=== PATIENT | male | born 1955 | race Two or more races ===

== ENCOUNTER → 2024-12-22 | Outpatient (CLI) | payer MEDICARE, SELFPAY ==
--- NOTE | 2024-12-22 14:06 | XR_ITS ---
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
--- NOTE | 2024-12-22 14:06 | XR_ITS ---
Examination: Foot bilateral, 6 views Technique: AP, oblique, lateral views each foot total 6 views Date and time of exam: December 22, 2024 1500 hours INDICATIONS: Patient fell from a tree 5 months ago with bilateral foot pain. FINDINGS: Severe osteopenia Fracture of the distal right fibular shaft with abundant bony callus but nonunion at the fracture site Pes planus Bones of the feet appear intact IMPRESSION: Bones of the feet appear intact
== END | disposition home or self-care (01) ==
LOC: CDIM 13:59
PROVIDERS: PCP Nurse Practitioner Primary Care; Referring Provider Nurse Practitioner Primary Care; Visit Provider Nurse Practitioner Primary Care
DX: S82.491A Other fracture of shaft of right fibula, initial encounter for closed fracture (principal); S99.922A Unspecified injury of left foot, initial encounter; S99.921A Unspecified injury of right foot, initial encounter; W14.XXXA Fall from tree, initial encounter
CPT/HCPCS: 73610; 73630

== ENCOUNTER → 2025-02-05 | Outpatient (CLI) | payer MEDICARE, SELFPAY ==
--- NOTE | 2025-02-05 09:39 | XR_ITS ---
EXAMINATION: Ankle, right 3 views . Technique: Ankle AP, oblique, lateral 3 views Date and time of exam: February 05, 2025 1041 hours Comparison December 22, 2024 INDICATIONS: Ankle fracture 6 months ago FINDINGS: Abundant callus about fracture distal fibular shaft, periosteal new bone Fracture line is still visible Pes planus Large ankle effusion IMPRESSION: Suspicious for osteomyelitis distal fibula and nonunion at the fracture site, recommend CT scan ankle without contrast follow-up
== END | disposition home or self-care (01) ==
PROVIDERS: PCP Nurse Practitioner Primary Care; Referring Provider Student in an Organized Health Care Education/Training Program; Visit Provider Student in an Organized Health Care Education/Training Program
DX: S82.491A Other fracture of shaft of right fibula, initial encounter for closed fracture (principal); X58.XXXA Exposure to other specified factors, initial encounter
CPT/HCPCS: 73610

== ENCOUNTER 2025-08-04 00:05 | Emergency (ER) | payer MEDICARE, SELFPAY ==
[2025-08-04 00:20] VITALS: BMI 2682.9
[2025-08-04 00:29] VITALS: BP 144/83; PULSE 78; RESP 20; TEMP 36.8; O2SAT 98
--- NOTE | 2025-08-04 00:53 | PD.EDRME ---
Rapid Medical Screening Exam RME Arrival date/time: 08/04/25 00:05 Chief Complaint: Ankle/Foot Injury Time Seen by Provider: 08/04/25 00:31 Vital signs: Vital Signs Temperature 98.2 F 08/04/25 00:29 Pulse Rate 78 08/04/25 00:29 Respiratory Rate 20 08/04/25 00:29 Blood Pressure 144/83 H 08/04/25 00:29 Pulse Oximetry (%) 98 08/04/25 00:29 Oxygen Delivery Method Room Air 08/04/25 00:29 RME Narrative: Right foot ulcer for 5-6 months now with redness/swelling to foot/RLE the past 2 days
--- NOTE | 2025-08-04 00:54 | XR_ITS ---
Examination: Foot, right, 3 views Technique: AP, oblique, lateral views foot, 3 views Date and time of exam: August 04, 2025, 0105 hrs. Indications: Nonhealing right foot ulcer note is beginning 6 months ago Findings: Deviation of the distal foot laterally relative to the forefoot Subluxation at the talonavicular joint Soft tissue defect at this joint Early cortical erosion involving the medial aspect of the navicular No fracture Impression: Early osteoarthritis involving the medial navicular, recommend MRI foot without contrast follow-up
[2025-08-04 01:26] LABS: Lactate (Lactic Acid) 1.0 mMol/L (0.4-2.0)
[2025-08-04 01:27] LABS: Basophils # (Auto) 0.0 Thou/mm3 (0.0-0.2); Basophils % (Auto) 1 % (0-2.5); Eosinophils # (Auto) 0.4 Thou/mm3 (0.0-0.5); Eosinophils % (Auto) 6 % (0-10); Hematocrit 41.7 % (41.0-53.0); Hemoglobin 13.7 g/dL (13.5-16.0); Immature Granulocytes Auto 0.02 Thou/mm3 (0.00-0.00); Lymphocytes # (Auto) 1.1 Thou/mm3 (1.0-4.8); Lymphocytes % (Auto) 16 % (10-50); Mean Corpuscular HGB Conc 32.9 g/dl (31.0-37.0); Mean Corpuscular Hemoglobin 28.5 pg (25.0-35.0); Mean Corpuscular Volume 87 fL (80-100); Monocytes # (Auto) 0.6 Thou/mm3 (0.0-0.8); Monocytes % (Auto) 9 % (0-12); Neutrophils # (Auto) 4.5 Thou/mm3 (1.8-7.7); Neutrophils % (Auto) 68 % (37-80); Nucleated Red Blood Cell # 0.00 Thou/mm3 (0.00-0.00); Nucleated Red Blood Cell % 0 /100 WBC (0); Platelet Count 212 Thou/mm3 (140-440); RDW Standard Deviation 44.3 fL (35.1-43.9); Red Blood Count 4.80 Miln/mm3 (4.50-5.90); White Blood Count 6.6 Thou/mm3 (3.8-10.6)
[2025-08-04 01:56] LABS: Alanine Aminotransferase 10 U/L (10-49); Albumin, Serum 4.6 gm/dL (3.4-4.8); Albumin/Globulin Ratio 1.8 (1.2-2.2); Alkaline Phosphatase 137 U/L (46-116); Anion Gap 7 (7-16); Aspartate Amino Transferase 14 U/L (0-34); BUN/Creatinine Ratio 13 Ratio (12-20); Bilirubin,Total 0.5 mg/dL (0.3-1.2); Blood Urea Nitrogen 17 mg/dL (9-23); C-Reactive Protein < 0.5 mg/dL (0.0-0.9); Calcium 10.1 mg/dL (8.3-10.6); Calcium (Corrected) 10.1 mg/dL (8.5-10.1); Carbon Dioxide 31.1 mMol/L (20.0-31.0); Chloride 103 mMol/L (98-107); Creatinine (Component) 1.3 mg/dL (0.6-1.3); Estimated Creatinine Clearance 44.7 mL/min (>60); Globulin 2.6 gm/dL (2.3-3.5); Glucose 169 mg/dL (74-106); Osmolality,Calculated 286 (275-295); Potassium 4.3 mMol/L (3.4-5.1); Procalcitonin 0.04 ng/ml (0.0-0.49); Sodium 141 mMol/L (136-145); Total Protein 7.2 gm/dL (5.7-8.2); eGFR 59 See Note
[2025-08-04 02:26] LABS: Sed Rate (ESR) 23 mm/hr (0-20)
[2025-08-04 04:32] VITALS: BP 172/94; PULSE 63; RESP 18; TEMP 36.7; O2SAT 98
--- NOTE | 2025-08-04 04:56 | PD.EDWOUND ---
ED Wound/Laceration-RME/HPI General Chief Complaint: Ankle/Foot Injury Stated Complaint: SWOLLEN RT LEG Time Seen by Provider: 08/04/25 00:31 Arrival date/time: 08/04/25 00:05 RME / HPI RME / HPI narrative: Right foot ulcer for 5-6 months now with redness/swelling to foot/RLE the past [address] COX MAIN ED EVALUATION: 69 y/o male with Hx of HTN and Type II DM presents to ED c/o right foot and ankle ulcer with worsening redness and notable swelling x 2 days. He noted sudden swelling and the right foot roll/shift to the left at the ankle prompting his visit to the ED. Patient reports a fall injury approximately 8 months ago when exiting the [employer] that did not properly heal. Patient was seen at [facility], radiographed, and told that he had an ankle sprain which may take a couple of months to heal due to Hx of DM. Community Liaison placed patient on a 7-day ABX regimen that has been completed. Community Liaison is advising surgical repair in [facility]. Related Data Previous Rx's ?Medication ?Instructions ?Recorded levofloxacin 500 mg tablet 500 mg PO QDAY #20 tabs 08/04/25 Allergies Allergy/AdvReac Type Severity Reaction Status Date / Time No Known Allergies Allergy Verified 08/04/25 00:26 Review of Systems Review of Systems Systems Reviewed: All systems reviewed, normal except as documented Past Medical History Past Medical History CARDIAC: Positive Cardiac Disorders and Hypertension GASTROINTESTINAL: Positive Gastrointestinal Disorders and Hiatal Hernia ENDOCRINE: Positive Endocrine Disorders and Diabetes Mellitus Type 2 ED Exam Narrative Physical exam: Generally the patient is alert and in no obvious distress, heart regular rate and rhythm, lungs clear to auscultation equal bilaterally, abdomen soft bowel sounds present also nontender extremities show deformity at the right ankle which is chronic for the patient. Patient has a medium sized approximately 6 cm circular open ulceration to the inner aspect of the right heel. Mild surrounding warmth. No discharge. No bony exposure. Course Quality Measures none Orders Category Date Time Status XR foot comp RT min 3V Stat Exams 08/04/25 00:54 Taken Blood Culture (Lab) Stat Lab 08/04/25 01:23 Received CBC Stat Lab 08/04/25 01:19 Completed CMP [Comprehensive Metabolic Panel] Stat Lab 08/04/25 01:19 Completed CRP [C-Reactive Protein] Stat Lab 08/04/25 01:19 Completed ESR [Sed Rate (ESR)] Stat Lab 08/04/25 01:19 Completed Lactate (Lactic Acid) Stat Lab 08/04/25 01:19 Completed Procalcitonin Stat Lab 08/04/25 01:19 Completed Levofloxacin [Levaquin] Med 08/04/25 05:00 Discontinued 500 mg PO X1 ONE Vital Signs Vital signs: Vital Signs Temperature 98.2 F 08/04/25 00:29 Pulse Rate 78 08/04/25 00:29 Respiratory Rate 20 08/04/25 00:29 Blood Pressure 144/83 H 08/04/25 00:29 Pulse Oximetry (%) 98 08/04/25 00:29 Oxygen Delivery Method Room Air 08/04/25 00:29 Wound / Laceration MDM Narrative MDM Narrative:: Scribe Attestation: IAinsley, am scribing for and in the presence of Dr. Cox. Provider Notation: Although this document has been carefully reviewed, there may still be some phonetic and other typographical errors. These errors are purely grammatical due to imperfections in the software program and should not be construed in any way to compromise the substance of the patient's medical care during this visit. I interpreted all labs. X-ray of the right foot showed no fracture and no bony destruction. Patient will be started on Levaquin. Patient was given Levaquin 500 milligrams p.o. here in the emergency room. 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 He is to follow-up with a marketing programs specialist for further treatment and evaluation. Patient is a diabetic. Patient data External records reviewed:: [facility] previous records (No prior ED records available for review.) Clinical information provided by:: patient Social determinants that could affect healthcare access:: none Patient has the following chronic illnesses:: Hypertension, Hiatal Hernia, Diabetes Mellitus Type 2 How is presenting disease/condition affected by chronic disease/condition?: exacerbated by Evaluation data The following diagnostics were reviewed and interpreted by me:: lab results and radiology exam(s) Lab and/or radiology exams considered but not ordered:: None Interpretation Summary: RADIOLOGY Right Foot X-Ray: Pending official radiology report. Medications / Prescriptions Medications or Prescriptions considered but not ordered:: None Medication administrations:: Medication Administration History Discontinued Medications Levofloxacin (Levofloxacin 250 Mg Tablet) 500 mg PO X1 ONE Stop: 08/04/25 05:01 See above if any Consultations Consultation(s) initiated? (list below): No Diagnosis Wound Differential Diagnosis: laceration, abscess, abrasion, avulsion of skin and other (ulcer, osteomyelitis, Cellulitis) Most likely diagnosis given after review of the tests above:: none Admission Indicated Admission indicated?: not indicated Explain why admission is indicated or not indicated:: Patient does not meet admission criteria Admission Request Was there a request for admission?: No Disposition Plan Disposition Plan: Discharge Discharge Attestation Discharge Attestation: The patient and all family members were given an opportunity to ask questions and understood the discharge instructions. Discharge instructions specifically effects, indications for sooner follow up or return to the emergency department, and the expected course of current diagnosis. Patient condition: Stable Discharge Plan Plan Patient Disposition: HOME (Self Care) Prescriptions/Referrals Prescriptions/Med Rec: New levofloxacin 500 mg tablet 500 mg PO QDAY Qty: 20 0RF Problem List Clinical Impression: Diabetic foot ulcer Patient/Caregiver Discharge Instructions Print Language: Malay Stand Alone Forms: Franny Award Info., Patient Portal Info Letter
[2025-08-04] MEDS: LEVOFLOXACIN 250 MG TABLET 500 MG PO (05:09)
[2025-08-04 05:17] VITALS: BP 171/90; PULSE 74; RESP 18; TEMP 36.7; O2SAT 98
== END 2025-08-04 05:17 | disposition home or self-care (01) ==
LOC: SERX 06:31
PROVIDERS: Physician Assistant; Emergency Provider Emergency Medicine
DX: E11.621 Type 2 diabetes mellitus with foot ulcer (principal); L97.519 Non-pressure chronic ulcer of other part of right foot with unspecified severity; I10 Essential (primary) hypertension
CPT/HCPCS: 36415; 73630; 80053; 83605; 84145; 85025; 85652; 86140; 87040; 99284; A9270

== ENCOUNTER → 2025-11-10 | Outpatient (CLI) | payer MEDICARE, SELFPAY ==
--- NOTE | 2025-11-10 11:36 | XR_ITS ---
EXAMINATION: Ankle, right 3 views. Technique: Ankle AP, oblique, lateral 3 views Date and time of exam: November 10, 2025, 1300 hours INDICATIONS: Ankle fracture and surgery July 06, 2025 FINDINGS: Bone detail severely obscured by casting material Healed fracture distal fibula Orthopedic pins traverse the tibia talus and calcaneus Pes planus IMPRESSION: Healed fracture distal fibular with residual deformity Orthopedic pins traverse the tibia talus and calcaneus
== END | disposition home or self-care (01) ==
LOC: SDIM 11:24
PROVIDERS: PCP Nurse Practitioner Primary Care; Referring Provider Otolaryngology; Visit Provider Otolaryngology
DX: Z87.81 Personal history of (healed) traumatic fracture (principal); Z98.890 Other specified postprocedural states
CPT/HCPCS: 73610